=== PATIENT | female | born 1975 | race Caucasian/White ===

== ENCOUNTER 2019-08-06 14:18 | Emergency (ER) | payer BC, SELFPAY ==
--- NOTE | ~2019-08-06 | CT_ITS ---
EXAMINATION: CT brain wo con DATE: 08/06/2019 15:19 INDICATION: Head injury. TECHNIQUE: Computed tomography (CT) of the head was performed without intravenous contrast. The mA wa s adjusted according to patient size. Iterative reconstruction technique was employed. The dose-lengt h product was 605.33 mGy-cm. COMPARISON: None FINDINGS: There is no intracranial hemorrhage, acute infarction, or abnormal intracranial mass lesion . The ventricles are normal in size. The paranasal sinuses are clear. The orbits are normal. The mast oid air cells are normal. There is a left superior scalp laceration. IMPRESSION: 1. Normal brain. Reviewed, dictated and finalized at location A. IMPRESSION: 1. Normal brain.
[2019-08-06 14:22] VITALS: BP 156/87; PULSE 96; RESP 18; TEMP 36.7; O2SAT 98
--- NOTE | 2019-08-06 14:31 | ED.HEATRA ---
HPI - Head Injury General Chief complaint: Head Injury Stated complaint: HEAD INJURY Time Seen by Provider: 08/06/19 14:22 Source: patient and family Mode of arrival: ambulatory Limitations: no limitations History of Present Illness HPI Narrative: Patient is 44 years old white female was taken her bed part somehow got hit to the top of her head by part of the bed, no loss of consciousness, no other injuries. Unknown tetanus shot. Patient denies any nausea, vomiting, dizziness, lightheadedness, blurry vision. Related Data Home Medications Medication Instructions Recorded Confirmed No Home Medications 08/06/19 08/06/19 Allergies Allergy/AdvReac Type Severity Reaction Status Date / Time NSAIDS (Non-Steroidal AdvReac Other Verified 08/06/19 14:30 Anti-Inflamma Review of Systems Review of Systems: Narrative: CONSTITUTIONAL: Denies fever, chills, or sweats. EYES: Denies visual changes, redness, or discharge. ENT: Denies rhinorrhea, congestion, sore throat, or otalgia. CARDIOVASCULAR: Denies chest pain, palpitations, or edema. RESPIRATORY: Denies cough or dyspnea. GASTROINTESTINAL: Denies abdominal pain, nausea, vomiting, or diarrhea. GENITOURINARY: Denies dysuria or hematuria. SKIN: Denies rash or itching. MUSCULOSKELETAL: Denies back pain, joint pain, or myalgia. NEUROLOGIC: Denies headache, numbness, or weakness. PSYCHIATRIC: Denies anxiety or depression. [facility] Social History Social History Gender identity (if verbalized by the patient): Female Exam Narrative: Exam Narrative: General appearance: Well-developed, well-nourished Skin: Normal color Head: Large hematoma at the left side of the top of the head, thick hair, glued together by blood, waiting for washing to see the underlying maceration. Eyes: Clear conjunctiva ENT: Oropharynx normal, ears normal, nose normal Neck: Supple, nontender Chest and respiratory: Airway patent, no respiratory distress, no accessory muscle use Heart: Regular rate/rhythm Abdomen: Soft, nontender, no organomegaly, quiet bowel sounds Vascular: Normal peripheral pulses, normal capillary refill. Musculoskeletal: Normal range of motion, nontender back Neurologic: Alert and oriented ?3, SPRAY DRIER is normal as tested, no gross motor deficit Course Course Emergency Course: Improving Vital Signs Vital signs: Vital Signs Temperature 36.7 C 08/06/19 14:22 Pulse Rate 96 08/06/19 14:22 Respiratory Rate 18 08/06/19 14:22 Blood Pressure 156/87 H 08/06/19 14:22 Pulse Oximetry 98 08/06/19 14:22 Temperature 36.7 C 08/06/19 14:22 Pulse Rate 96 08/06/19 14:22 Respiratory Rate 18 08/06/19 14:22 Blood Pressure 156/87 H 08/06/19 14:22 Pulse Oximetry 98 08/06/19 14:22 Procedures Laceration Laceration 1: Date: 08/06/19 Time: 16:02 Site: scalp Side (If applicable): left Size (cm): 2 Description: linear and clean Depth: simple, single layer Pre-repair: wound explored ====== Skin Level ====== Skin layer closed with: marin (X2) ====== Subcutaneous Layer ====== ====== Muscle Layer ====== ====== Tendon Layer ====== MDM - Head Injury MDM Narrative Medical decision making narrative: Closed head injury with scalp laceration. CT head, tetanus shot ordered. Further plan to follow Critical Care Time Critical Care Time Critical Care Time: No Discharge Plan Discharge Clinical Impression: Closed head injury Qualifiers: Encounter type: subsequent encounter Qualified Code(s): S09.90XD - Unspecified injury of head, subsequent encounter [facility]
[2019-08-06] MEDS: TETANUS,DIPHTHERIA,AC PERTUSSIS ADULT (0.5 ML) BOOSTRIX IM (14:46)
--- NOTE | 2019-08-06 15:10 | PC.NURSE ---
LET placed to wound per order Dr. Bhardwaj. Continue to await CT
[2019-08-06 16:04] VITALS: BP 142/97; PULSE 75; RESP 16; O2SAT 97
== END 2019-08-06 16:16 | disposition home or self-care (01) ==
PROVIDERS: Emergency Provider Emergency Medicine
DX: S09.90XA Unspecified injury of head, initial encounter (principal); S01.01XA Laceration without foreign body of scalp, initial encounter; Z23 Encounter for immunization; W22.8XXA Striking against or struck by other objects, initial encounter
CPT/HCPCS: 12001; 70450; 90471; 90715; 99284; A9270